=== PATIENT | male | born 2000 | race Two or more races ===

== ENCOUNTER 2022-05-01 16:14 | Emergency (ER) | payer SELFPAY ==
[2022-05-01] MEDS ORDERED: Lidocaine 1% 5 ML VIAL ONE (17:38)
[2022-05-01] MEDS ORDERED: Lidocaine 1% 5 ML VIAL INJECT ONE (17:57)
[2022-05-01] MEDS ORDERED: Diphtheria,Pertussis(Acell),Tetanus Vaccine 0.5 ML Syringe IM ONE (17:57)
== END 2022-05-01 18:20 | disposition home or self-care (01) ==
LOC: JP.ED 16:14
DX: S51.032A Puncture wound without foreign body of left elbow, initial encounter (principal); Z23 Encounter for immunization; W45.8XXA Other foreign body or object entering through skin, initial encounter
CPT/HCPCS: 90471; 90715; 99282; 99283-25